=== PATIENT | male | born 1950 | race Caucasian/White ===

== ENCOUNTER 2016-11-22 08:51 | Observation (INO) | payer BC, OTHER ==
[~2016-11-22] VITALS: Ht 177.8 cm; Wt 93.9 kg
--- NOTE | ~2016-11-22 | P ---
[facility] [place] [address] PROCEDURE REPORT Name: NICOLLE BOUDREAUX Room #: 209-P [facility] M..#: [id number] Admission: 11/22/16 Attend Phys: Bobby Armenta MD Discharge: Date of : 54 Report #: [id number] THIS REPORT FOR: //name// CC: Jm Kelly PROCEDURE: ICD implant. PREOPERATIVE DIAGNOSIS: Ischemic cardiomyopathy. POSTOPERATIVE DIAGNOSIS: Ischemic cardiomyopathy. HISTORY: The patient is a 66-year-old male with a history of an ischemic cardiomyopathy, EF of 30% to 35%, who is here for ICD implantation for primary prevention of sudden cardiac . ANESTHESIA: The patient underwent MAC anesthesia, with no anesthesia-related complications. DESCRIPTION OF PROCEDURE: The patient underwent informed consent. We discussed the details of the procedure including the risks, which include but not limited to bleeding, infection, vascular damage, cardiac perforation and pneumothorax. He understood these risks and is willing to proceed. As such, he is brought to the EP laboratory in a fasting and sedated state and prepped and draped in a sterile fashion. He underwent a venogram showing patency of the left axillary vein and received IV antibiotics prior to initiation of the procedure. Next, I injected 20 mL of lidocaine below the level of the clavicle. Incision was made, pocket was created over the prepectoral fascia and access was obtained once to the left axillary vein using the extrathoracic approach, with a sheath positioned using the modified Seldinger technique. Next, the RV lead was placed into the right ventricular apex. At this site, there were low R waves. I decided to reposition the lead to more of a septal site with improvement in R waves. The lead was sutured to the prepectoral fascia. Access was obtained. The device was connected to leads and the lead was found to be functioning normally. The pocket was irrigated with vancomycin and then the pocket was closed in 3 layers using 2-0 for the deep layer, 3-0 for the mid layer and 4-0 for the subcuticular layer. Surgical glue was placed to the outer skin layer. The patient awoke neurologically and hemodynamically intact, with no complications and no significant bleeding. The implanted ICD was a [employer] model # [id number], serial #[id number]. RV lead was a [employer] model #7122Q, 58 cm, serial # [id number]. This lead demonstrated an R-wave of 9.7 millivolts, pacing impedance of 510 ohms and a pacing threshold of 0.25 volts at 0.5 milliseconds. The device was programmed to the VVI 40 mode with a VT zone set at 180-220 with 3 rounds of bursts, followed by 3 rounds of ramp, followed by max output shocks. The VF zone was [facility] [address] [place] [address] PROCEDURE REPORT Name: NICOLLE BOUDREAUX Room #: 209-P [facility] Maximino M.R.#: [id number] Admission: 11/22/16 Attend Phys: Bobby Armenta MD Discharge: Date of : 54 Report #: [id number] programmed at greater than 220 beats per minute with ATP, followed by max output shocks. CONCLUSIONS: 1. Successful ICD implantation. 2. Satisfactory right ventricular pacing and sensing thresholds. By: 1659 [id number] Bobby Armenta MD /nt
[~2016-11-22 08:51] MED LIST: ASPIRIN325 PO; CARDURA XL8 MG PO; CRESTOR20 MG PO; EFFIENT10 MG PO; FISH OIL 1,0001 EAC5 PO; LISINOPRIL-HCT1 EACH PO; MULTIVITAMINS PO; NORVASC 5 MG TAB5 MG PO; TOPROL XL100 MG PO; ZOCOR5 MG
[2016-11-22] MEDS ORDERED: METFORMIN HCL500 MG PO (09:08)
[2016-11-22] MEDS ORDERED: ALLER-EASE180 MG PO (09:08)
[2016-11-22 09:20] VITALS: BP 106/76
[2016-11-22 09:23] LABS: ABSOLUTE NEUTROPHILS 3.1 thou/uL (1.4-8.2); BASOPHILS 0.8 % (0.0-2.0); EOSINOPHILS 4.6 % (0.0-3.0); HEMATOCRIT 40.6 % (42.0-52.0); HEMOGLOBIN 13.1 gm/dL (14.0-18.0); LYMPHOCYTES 20.8 % (24.0-44.0); MANUAL DIFF NO; MCHC 32.3 g/dL (28.0-37.0); MCV 83.6 fL (80.0-100.0); MONOCYTES 9.8 % (1.0-8.0); PLATELET COUNT 126 thou/uL (150-400); RBC 4.85 mil/uL (4.50-6.00); RDW 16.7 % (10.5-14.5); WBC 4.9 thou/uL (4.0-11.0)
[2016-11-22 09:36] LABS: APTT 25.8 Seconds (24.5-32.8); INR 1.2
[2016-11-22 09:40] LABS: CALCIUM 9.6 mg/dL (8.5-10.1); CREATININE 1.4 mg/dL (0.7-1.3)
[2016-11-22 09:46] LABS: TOTAL BILIRUBIN 0.9 mg/dL (<0.1-1.0); TOTAL PROTEIN 7.7 g/dL (6.4-8.2)
[2016-11-22 18:00] VITALS: BP 108/77
[2016-11-22 20:00] VITALS: BP 104/74
[2016-11-22 23:39] VITALS: BP 116/62
[2016-11-23 04:28] VITALS: BP 106/78
[2016-11-23 06:55] VITALS: BP 112/72
[2016-11-23 10:47] VITALS: BP 112/72
[2016-11-23 10:53] VITALS: BP 112/72
== END 2016-11-23 12:42 | disposition home or self-care (01) ==
LOC: CATH 08:51 → 2N 17:51
PROVIDERS: Internal Medicine Cardiovascular Disease
DX: I25.5 Ischemic cardiomyopathy (principal); I10 Essential (primary) hypertension; E78.5 Hyperlipidemia, unspecified; I25.10 Atherosclerotic heart disease of native coronary artery without angina pectoris; Z72.89 Other problems related to lifestyle

== ENCOUNTER → 2017-01-12 | Outpatient (CLI) | payer BC, OTHER ==
[~2017-01-12] MED LIST changes: +ALLER-EASE180 MG PO; +METFORMIN HCL500 MG PO
--- NOTE | ~2017-01-12 | PFR/MVV ---
[facility] [place] [address] PULMONARY FUNCTION MVV/REPORT Name: NICOLLE BOUDREAUX Room #: REG [facility]#: [id number] Admission: 01/12/17 Attend Phys: Jm Abreu MD, [facility] Discharge: Date of : 54 Report #: [id number] THIS REPORT FOR: //name// >> SPIROMETRY: (BTPS) Height: in cm Weight: lbs kg Exam Date: PRE-RX POST-RX PRED BEST %PRED BEST %PRED %CHG FVC LITERS . . . . . . FEV1 LITERS . . . . . . FEV1/FVC % . . . . . . XTY12-59% L/Sec . . . . . . PEF L/SEC . . . . . . FEF50/FIF50 UNITLESS . . . . . . MVV L/Min . . . f 1/Min . . . >> LUNG VOLUMES: (BTPS) PRE-RX POST-RX PRED AVG %PRED AVG %PRED %CHG VC Liters . . . . . . TLC Liters . . . . . . RV Liters . . . . . . RV/TLC % . . . . . . FRC PL Liters . . . . . . FRC N2 Liters . . . . . . ERV Liters . . . . . . IC Liters . . . . . . >> DIFFUSION: DLCO ml/Min/mmHg . . . . . . DL Chris ml/Min/mmHg . . . . . . DLCO/VA ml/Min/mmHg . . . . . . VA Liters . . . . . . COMMENTS: COMMENTS: >> RESISTANCE: [facility] [address] [place] [address] PULMONARY FUNCTION MVV/REPORT Name: NICOLLE BOUDREAUX Room #: REG [facility]#: [id number] Admission: 01/12/17 Attend Phys: Jm Abreu MD, [facility] Discharge: Date of : 54 Report #: [id number] PRE-RX PRED AVG %PRED Raw Total cmH20/L/Sec . . . Raw Insp cmH20/L/Sec . . . Raw Exp cmH20/L/Sec . . . Raw cmH20/L/Sec . . . Gaw L/Sec/cmH20 . . . sRaw cmH20 Sec . . . sGaw l/cmH20 Sec . . . Vtq Liters . . . # = OUTSIDE 95% CONFIDENCE INTERVAL CALIBRATION: PRED: 3.00 ACTUAL: EXP 3.01 INSP 3.02 [facility]-OL03-25 [facility]- N-1804-4 >> INTERPRETATION/IMPRESSION: CC: Jm Kelly DATE OF SERVICE: 01/12/2017 NOTATION: Full pulmonary function studies are as follows: Spirometry revealed moderate airflow obstruction as evidenced by the reduced FEV1/FVC ratio. The FEV1 is 2.23 liters or 64% of predicted. There is no significant change with bronchodilators. Lack of improvement with bronchodilators does not preclude a therapeutic trial of bronchodilator medications. Lung volumes normal. DLCO normal. By: Mack Hart MD /nt
== END ==
LOC: PUL 10:50
DX: Z92.29 Personal history of other drug therapy (principal)

== ENCOUNTER → 2017-01-25 | Outpatient (CLI) | payer BC, OTHER ==
[~2017-01-25] MED LIST changes: +ALLERGY RELIEF180 MG PO; +AMIODARONE HCL100 MG PO; +BECONASE AQ25 GM NS; +COREG25 MG PO
== END ==
LOC: RAD 15:09
DX: J90 Pleural effusion, not elsewhere classified (principal)

== ENCOUNTER 2017-01-27 11:39 | Inpatient (IN) | payer BC, OTHER ==
[~2017-01-27] VITALS: Ht 177.8 cm; Wt 86.2 kg
--- NOTE | ~2017-01-27 | EKG ---
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
[~2017-01-27 11:39] MED LIST changes: -ALLERGY RELIEF180 MG PO; -AMIODARONE HCL100 MG PO; -BECONASE AQ25 GM NS; -COREG25 MG PO
[2017-01-27 12:07] VITALS: BP 104/74
[2017-01-27] MEDS ORDERED: COREG25 MG PO (12:20)
[2017-01-27] MEDS ORDERED: AMIODARONE HCL100 MG PO (12:21)
[2017-01-27] MEDS ORDERED: ALLERGY RELIEF180 MG PO (12:22)
[2017-01-27] MEDS ORDERED: BECONASE AQ25 GM NS (12:23)
[2017-01-27 12:31] LABS: ABSOLUTE NEUTROPHILS 4.9 thou/uL (1.4-8.2); BASOPHILS 0.6 % (0.0-2.0); EOSINOPHILS 2.7 % (0.0-3.0); HEMATOCRIT 37.2 % (42.0-52.0); HEMOGLOBIN 11.9 gm/dL (14.0-18.0); LYMPHOCYTES 11.4 % (24.0-44.0); MCH 27.8 pg (26.0-34.0); MONOCYTES 7.6 % (1.0-8.0); PLATELET COUNT 157 thou/uL (150-400); POLYS 77.7 % (36.0-66.0); RBC 4.28 mil/uL (4.50-6.00); RDW 16.9 % (10.5-14.5); WBC 6.4 thou/uL (4.0-11.0)
[2017-01-27 12:36] LABS: MANUAL DIFF NO
[2017-01-27 12:41] LABS: CALCIUM 9.7 mg/dL (8.5-10.1); CREATININE 1.4 mg/dL (0.7-1.3); POTASSIUM 4.1 mmol/L (3.5-5.1)
[2017-01-27 12:53] LABS: ALBUMIN 3.7 g/dL (3.4-5.0); TOTAL BILIRUBIN 1.5 mg/dL (<0.1-1.0); TOTAL PROTEIN 7.5 g/dL (6.4-8.2); TROPONIN-I 0.05 ng/mL (<0.04-0.07)
[2017-01-27 14:39] VITALS: BP 104/74
[2017-01-27 15:20] VITALS: BP 112/77
[2017-01-27 15:40] VITALS: BP 102/79
[2017-01-27 20:00] VITALS: BP 109/69
[2017-01-28 04:00] VITALS: BP 100/65
[2017-01-28 05:39] LABS: ABSOLUTE NEUTROPHILS 4.6 thou/uL (1.4-8.2); BASOPHILS 0.6 % (0.0-2.0); EOSINOPHILS 4.2 % (0.0-3.0); HEMATOCRIT 34.4 % (42.0-52.0); HEMOGLOBIN 11.3 gm/dL (14.0-18.0); LYMPHOCYTES 11.3 % (24.0-44.0); MCH 28.3 pg (26.0-34.0); MCHC 32.9 g/dL (28.0-37.0); MCV 86.1 fL (80.0-100.0); MONOCYTES 9.8 % (1.0-8.0); PLATELET COUNT 153 thou/uL (150-400); POLYS 74.1 % (36.0-66.0); RBC 3.99 mil/uL (4.50-6.00); RDW 16.9 % (10.5-14.5); WBC 6.3 thou/uL (4.0-11.0)
[2017-01-28 05:42] LABS: MANUAL DIFF NO
[2017-01-28 06:19] LABS: CALCIUM 9.5 mg/dL (8.5-10.1); CREATININE 1.4 mg/dL (0.7-1.3); POTASSIUM 3.7 mmol/L (3.5-5.1)
[2017-01-28 07:58] VITALS: BP 105/64
[2017-01-28 15:43] VITALS: BP 97/48
[2017-01-28 20:20] VITALS: BP 118/60
[2017-01-29 03:55] VITALS: BP 90/53
[2017-01-29 03:59] LABS: CALCIUM 9.8 mg/dL (8.5-10.1); CREATININE 1.6 mg/dL (0.7-1.3); POTASSIUM 3.6 mmol/L (3.5-5.1)
[2017-01-29 04:08] LABS: BASOPHILS 0.8 % (0.0-2.0); EOSINOPHILS 5.4 % (0.0-3.0); HEMATOCRIT 35.6 % (42.0-52.0); HEMOGLOBIN 11.6 gm/dL (14.0-18.0); LYMPHOCYTES 14.6 % (24.0-44.0); MCHC 32.5 g/dL (28.0-37.0); MCV 86.2 fL (80.0-100.0); MONOCYTES 10.4 % (1.0-8.0); PLATELET COUNT 162 thou/uL (150-400); POLYS 68.8 % (36.0-66.0); RBC 4.13 mil/uL (4.50-6.00); RDW 16.6 % (10.5-14.5); WBC 5.9 thou/uL (4.0-11.0)
[2017-01-29 04:10] LABS: MANUAL DIFF NO
[2017-01-29 08:10] VITALS: BP 95/60
[2017-01-29 13:10] VITALS: BP 100/63
[2017-01-29 15:39] VITALS: BP 93/58
[2017-01-30 03:56] VITALS: BP 105/59
[2017-01-30 07:31] VITALS: BP 106/63
[2017-01-30 14:48] VITALS: BP 106/63
== END 2017-01-30 15:15 | disposition home or self-care (01) | DRG 292 ==
LOC: ER 11:39 → 4E 13:00 → EROBS 14:10 → 4E 15:33
PROVIDERS: Family Medicine; Physician Assistant
DX: I11.0 Hypertensive heart disease with heart failure (principal); G45.1 Carotid artery syndrome (hemispheric); I50.23 Acute on chronic systolic (congestive) heart failure; I25.5 Ischemic cardiomyopathy; I25.10 Atherosclerotic heart disease of native coronary artery without angina pectoris; E78.00 Pure hypercholesterolemia, unspecified; Z90.49 Acquired absence of other specified parts of digestive tract; Z95.1 Presence of aortocoronary bypass graft; Z95.810 Presence of automatic (implantable) cardiac defibrillator
CPT/HCPCS: 10183

== ENCOUNTER → 2017-07-28 | Outpatient (CLI) | payer OTHER, BC ==
[~2017-07-28] MED LIST changes: +ALLERGY RELIEF180 MG PO; +ALLOPURINOL 10100 M1 PO; +BECONASE AQ25 GM NS; +BREO ELLIPTA 11 EACH INH; +COREG25 MG PO; +CORLANOR5 MG PO; +COUMADIN 2.5MG2.5 M1 PO; +DEMADEX20 MG PO; +DIGOXIN125 MCG PO; +GAS-X125 M1 PO; +LISINOPRIL20 MG PO; +MILRINONE-20 MG/100 IV; +MULTIPLE VITAM1 EAC2 PO; +PACERONE 200 M200 M1 PO; +POTASSIUM20 PO; +PRADAXA150 MG PO; +PROAIR RESPICL90 MCG INH; +ROLAIDS CHEWAB1 EAC1 PO; +SYNTHROID50 MCG PO; +TOPROL XL25 MG PO
--- NOTE | ~2017-07-28 | 2DMMODE ---
[facility] [address] [place] [address] 2 D/M-MODE ECHOCARDIOGRAM Name: NICOLLE BOUDREAUX Room #: REG [facility]#: [id number] Admission: 07/28/17 Attend Phys: Bobby Armenta Discharge: Date of : 54 Date of Service: 07/28/17 1638 Report #: [id number] THIS REPORT FOR: //name// APPROVED REPORT Study performed: 07/28/2017 15:47:11 EXAM: Comprehensive 2D, Doppler, and color-flow Echocardiogram Patient Location: Out-Patient Status: routine BSA: 2.09 HR: 41 bpm BP: 116/78 mmHg Other Information Study Quality: Good Indications Cardiomyopathy. Hx: CABG, AICD, CHF 2D Dimensions RVDd: 49.10 mm LVEF(%): 22.02 (>50%) IVSd: 10.91 (7-11mm) LVOT Diam: 25.95 (18-24mm) LVDd: 71.60 mm PWd: 11.04 (7-11mm) Ascending Ao: 37.04 (22-36mm) LVDs: 64.14 (25-40mm) Aortic Root: 39.91 mm Juarez's LVEF: 22.02 % Volumes Left Atrial Volume (Systole) Single Plane 4CH: 135.01 mL Single Plane 2CH: 181.66 mL LA ESV Index: 80.00 mL/m2 Aortic Valve AoV Peak Robbie.: 0.96 m/s AO Peak Gr.: 3.67 mmHg LVOT Max P.17 mmHg LVOT Max V: 0.89 m/s DULCE MARIA Vmax: 4.91 cm2 Mitral Valve E/A Ratio: 2.3 MV Decel. Time: 106.22 ms MV E Max Robbie.: 0.99 m/s [facility] [place] [address] 2 D/M-MODE ECHOCARDIOGRAM Name: NICOLLE BOUDREAUX [facility] [id number] Admission: 07/28/17 Attend Phys: [facility] Discharge: Date of : 54 Date of Service: 07/28/17 1638 Report #: [id number] MV A Orbbie.: 0.44 m/s MV PHT: 30.80 ms IVRT: 73.82 ms Pulmonary Valve PV Peak Robbie.: 0.83 m/s PV Peak Gr.: 2.77 mmHg Tricuspid Valve TR Peak Robbie.: 3.70 m/s RAP Estimate: 10.00 mmHg TR Peak Gr.: 54.73 mmHg PA Pressure: 65.00 mmHg Left Ventricle Left ventricle is moderate to severely dilated. There is normal left ventricular wall thickness. Left ventricular systolic function is severely decreased. LVEF is 30%. This study is not technically sufficient to allow evaluation of the LV diastolic function. Right Ventricle Right ventricle is moderately dilated. The right ventricular systolic function is normal. Device lead is present in the right ventricle. Atria Left atrium is severely dilated. Right atrium is moderately dilated. Aortic Valve The aortic valve is mildly sclerotic, trileaflet. Mild aortic regurgitation. There is no aortic valvular stenosis. Mitral Valve The mitral valve is normal in structure. Moderately severe to severe mitral regurgitation. Tricuspid Valve The tricuspid valve is normal in structure. Moderate tricuspid regurgitation. Estimated PAP is 65mmHg. Pulmonic Valve The pulmonary valve is normal in structure. Mild to moderate pulmonic regurgitation. Great Vessels Aortic root is mildly dilated. Ascending aorta measures at the upper limits of normal. IVC is dilated and collapses <50% with inspiration. [address] [address] 2 D/M-MODE ECHOCARDIOGRAM Name: NICOLLE BOUDREAUX Room #: REG [facility]#: [id number] Admission: 07/28/17 Attend Phys: [facility] Discharge: Date of : 54 Date of Service: 07/28/17 1638 Report #: [id number] Pericardium There is no pericardial effusion. <Conclusion> Left ventricular systolic function is severely decreased. LVEF is 30%. Basal inferoseptal and inferolateral akinesis Both atria are dilated. The aortic valve is mildly sclerotic, trileaflet. Mild aortic regurgitation, no stenosis. The mitral valve is normal in structure. Moderately severe to severe mitral regurgitation. Moderate tricuspid regurgitation. Estimated PAP is 65mmHg. There is no pericardial effusion. <ELECTRONICALLY SIGNED> By: Jm Abreu MD, [facility] 07/28/17 1638 1638 1638 Jm Abreu MD, FACC /INF
== END ==
LOC: CV 15:17
DX: I42.9 Cardiomyopathy, unspecified (principal); I50.9 Heart failure, unspecified; Z95.5 Presence of coronary angioplasty implant and graft; Z95.810 Presence of automatic (implantable) cardiac defibrillator

== ENCOUNTER 2017-08-04 06:49 | Observation (INO) | payer OTHER ==
[~2017-08-04] VITALS: Ht 177.8 cm; Wt 85.7 kg
--- NOTE | ~2017-08-04 | P ---
[place] [address] PROCEDURE REPORT Name: NICOLLE BOUDREAUX Room #: 207-P [facility] M.R.#: [id number] Admission: 08/04/17 Attend Phys: Bobby Armenta MD Discharge: 08/05/17 Date of : 54 Report #: [id number] THIS REPORT FOR: //name// CC: Jm Kelly PROCEDURE PERFORMED: Bi-V ICD upgrade. PREOPERATIVE DIAGNOSES: 1. Ischemic cardiomyopathy. 2. Symptomatic bradycardia. 3. Complete heart block. 4. Ventricular tachycardia. HISTORY OF PRESENT ILLNESS: The patient is a 67-year-old with history of coronary artery disease, status post [place] as well as an ischemic cardiomyopathy, status post single chamber ICD implantation back in November 2016. A few months after implant, the patient had an episode of cardiac arrest and was successfully resuscitated by his defibrillator. He was placed on amiodarone. He then has been developing worsening bradycardia. He had significant sinus bradycardia, therefore his amiodarone dose was decreased to 300 mg a day. However, recently, he was noted to be in atrial flutter with a ventricular rate in the 40s. As such, the patient will need an upgrade to a Bi-V ICD as I anticipate 100% right ventricular pacing and he has an EF of less than 35% and class 3 heart failure symptoms. ANESTHESIA: The patient underwent MAC anesthesia with no anesthesia related complications. PROCEDURE: The patient underwent informed consent where we discussed the details of the procedure including the risks, which include, but are not limited to bleeding, infection, vascular damage, cardiac perforation, and pneumothorax. He understood these risks and was willing to proceed. As such, he was brought to the EP laboratory in a fasting and sedated state and prepped and draped in a sterile fashion. He underwent a venogram showing patency of the left axillary vein. Next, I injected lidocaine at the prior incision site. The incision was opened and the old device was taken out of the pocket. I then obtained access to the left axillary vein times 2 using the extrathoracic approach with sheaths positioned using the modified Seldinger technique. Next, a lead was placed in the right atrial appendage. The patient was in a slow flutter with a cycle length of around 400 milliseconds. Threshold was able to be obtained and was within normal limits. The lead was sutured to the prepectoral fascia. Next, I placed my coronary sinus guide sheath into the right atrium and obtained access to the coronary sinus. He had a very large coronary sinus. I initially performed a hand injection via the sheath, but due to the very large coronary sinus, I could not really see any target vessels. Therefore, I placed a balloon [address] [address] PROCEDURE REPORT Name: NICOLLE BOUDREAUX Room #: 207-P [facility] Maximino M.RCrystal#: [id number] Admission: 08/04/17 Attend Phys: Bobby Armenta MD Discharge: 08/05/17 Date of : 54 Report #: [id number] into the coronary sinus and this caused a slight dissection along the mid aspect of the coronary sinus, but I was able to maintain sheath position and I was able to notice that there was a small posterior lateral branch at the very distal aspect of the coronary sinus. I was able to position a quadripolar lead into this vessel. This had good pacing thresholds. There was no phrenic nerve capture. As such, the sheath was split and the lead remained in position. This lead was sutured to the prepectoral fascia. I did expand the pocket to make room for the larger generator. The pocket was then irrigated with vancomycin solution. The new leads were connected to the new device and the device was tested and found to be functioning normally. The pocket was then closed in 3 layers using 2-0 for the deep layer, 3-0 for the mid layer and 4-0 for the subcuticular layer. Surgical glue was placed to the outer skin layer. The patient awoke neurologically and hemodynamically intact with no complications and no significant bleeding. We used 43 mL of contrast. The explanted defibrillator was a [employer] model #055764K, serial #[id number], implanted on 11/22/2016. The RV lead was a [employer] model #7122Q, 58 cm, serial #[id number]. This lead was implanted on 11/22/2016. The newly implanted generator was a [employer] model #[id number], serial #[id number]. The new atrial lead was a [employer] model #2088TC, 52 cm, serial #[id number]. The LV lead was a [employer] model #1458Q, 86 cm, serial #[id number]. The atrial lead demonstrated a P-wave of 2.2 millivolts, a pacing impedance of 403 ohms and a pacing threshold of 0.8 volts at 0.5 milliseconds. The RV lead demonstrated R-wave was greater than 12 millivolts, pacing impedance of 360 ohms and the pacing threshold of 0.75 volts at 0.5 milliseconds and the LV lead demonstrated a pacing threshold of 1.5 volts at 0.5 milliseconds at the M3-M2 pacing vector with a pacing impedance of 680 ohms. There was no phrenic nerve stimulation noted at this site. The device was programmed to the DDDR 70-120 mode. The VT 1 zone was set from 180-220 beats per minute with 3 rounds of burst followed by 3 rounds of ramp followed by max output shocks. The VF zone was set at greater than 222 beats per minute with ATP while charging followed by max output shocks. CONCLUSIONS: 1. Successful upgrade to a biventricular ICD. 2. Satisfactory atrial, right ventricular and left ventricular pacing and sensing thresholds. <ELECTRONICALLY SIGNED> By: Bobby Armenta MD 09/02/17 1753 1104 1700 Bobby Armenta MD /nt
--- NOTE | ~2017-08-04 | EKG ---
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 <ELECTRONICALLY SIGNED> By: Jm Abreu MD, FAC 08/05/17 0751 0615 0615 Jm Abreu MD, FAC /EPI
[~2017-08-04 06:49] MED LIST changes: -ALLOPURINOL 10100 M1 PO; -BREO ELLIPTA 11 EACH INH; -CORLANOR5 MG PO; -COUMADIN 2.5MG2.5 M1 PO; -DEMADEX20 MG PO; -DIGOXIN125 MCG PO; -GAS-X125 M1 PO; -LISINOPRIL20 MG PO; -MILRINONE-20 MG/100 IV; -MULTIPLE VITAM1 EAC2 PO; -POTASSIUM20 PO; -PRADAXA150 MG PO; -PROAIR RESPICL90 MCG INH; -ROLAIDS CHEWAB1 EAC1 PO; -SYNTHROID50 MCG PO; -TOPROL XL25 MG PO
[2017-08-04 07:32] LABS: ABSOLUTE NEUTROPHILS 3.6 thou/uL (1.4-8.2); BASOPHILS 2.8 % (0.0-2.0); EOSINOPHILS 5.3 % (0.0-3.0); HEMOGLOBIN 11.6 gm/dL (14.0-18.0); LYMPHOCYTES 17.1 % (24.0-44.0); MCH 29.4 pg (26.0-34.0); MCHC 32.2 g/dL (28.0-37.0); MCV 91.2 fL (80.0-100.0); MONOCYTES 10.5 % (1.0-8.0); PLATELET COUNT 233 thou/uL (150-400); POLYS 64.3 % (36.0-66.0); RBC 3.95 mil/uL (4.50-6.00); RDW 15.8 % (10.5-14.5); WBC 5.7 thou/uL (4.0-11.0)
[2017-08-04] MEDS ORDERED: DEMADEX20 MG PO (07:40)
[2017-08-04] MEDS ORDERED: LISINOPRIL20 MG PO (07:44)
[2017-08-04 07:45] LABS: CALCIUM 9.3 mg/dL (8.5-10.1); CREATININE 2.4 mg/dL (0.7-1.3); POTASSIUM 3.6 mmol/L (3.5-5.1)
[2017-08-04 07:46] LABS: APTT 27.2 Seconds (24.5-32.8); INR 1.2; PROTIME 12.7 Seconds (9.3-11.4)
[2017-08-04 07:49] VITALS: BP 109/65
[2017-08-04 07:53] LABS: ALBUMIN 3.2 g/dL (3.4-5.0); TOTAL BILIRUBIN 0.8 mg/dL (<0.1-1.0); TOTAL PROTEIN 6.9 g/dL (6.4-8.2)
[2017-08-04 14:20] VITALS: BP 126/90
[2017-08-04 16:23] VITALS: BP 127/79
[2017-08-04 20:24] VITALS: BP 124/86
[2017-08-05 00:05] VITALS: BP 105/64
[2017-08-05 04:34] VITALS: BP 118/75
[2017-08-05 04:47] LABS: ABSOLUTE NEUTROPHILS 4.9 thou/uL (1.4-8.2); BASOPHILS 1.3 % (0.0-2.0); EOSINOPHILS 3.9 % (0.0-3.0); HEMATOCRIT 35.8 % (42.0-52.0); HEMOGLOBIN 11.3 gm/dL (14.0-18.0); LYMPHOCYTES 13.9 % (24.0-44.0); MCH 28.9 pg (26.0-34.0); MCHC 31.6 g/dL (28.0-37.0); MCV 91.5 fL (80.0-100.0); MONOCYTES 8.4 % (1.0-8.0); PLATELET COUNT 200 thou/uL (150-400); POLYS 72.5 % (36.0-66.0); RBC 3.91 mil/uL (4.50-6.00); RDW 15.5 % (10.5-14.5); WBC 6.8 thou/uL (4.0-11.0)
[2017-08-05 05:11] LABS: CALCIUM 9.4 mg/dL (8.5-10.1); CREATININE 1.9 mg/dL (0.7-1.3); POTASSIUM 3.9 mmol/L (3.5-5.1)
[2017-08-05 07:32] VITALS: BP 117/65
[2017-08-05 09:30] VITALS: BP 117/65
[2018-04-26] MEDS ORDERED: PROAIR RESPICL90 MCG INH (15:47)
[2018-04-26] MEDS ORDERED: ALLOPURINOL 10100 M1 PO (15:48)
[2018-04-26] MEDS ORDERED: CORLANOR5 MG PO (15:51)
[2018-04-26] MEDS ORDERED: DIGOXIN125 MCG PO (15:55)
[2018-04-26] MEDS ORDERED: BREO ELLIPTA 11 EACH INH (15:56)
[2018-04-26] MEDS ORDERED: SYNTHROID50 MCG PO (15:57)
[2018-04-26] MEDS ORDERED: TOPROL XL25 MG PO (15:58)
[2018-04-26] MEDS ORDERED: MULTIPLE VITAM1 EAC2 PO (16:01)
[2018-04-26] MEDS ORDERED: MILRINONE-20 MG/100 IV (16:01)
[2018-04-26] MEDS ORDERED: POTASSIUM20 PO (16:02)
[2018-04-26] MEDS ORDERED: ROLAIDS CHEWAB1 EAC1 PO (16:03)
[2018-04-26] MEDS ORDERED: GAS-X125 M1 PO (16:04)
[2018-04-26] MEDS ORDERED: COUMADIN 2.5MG2.5 M1 PO (16:05)
== END 2017-08-05 09:45 | disposition home or self-care (01) ==
LOC: CATH 06:49 → 2N 06:55 → CATH 10:49 → 2N 08-05 09:45
PROVIDERS: Internal Medicine Cardiovascular Disease
DX: I25.10 Atherosclerotic heart disease of native coronary artery without angina pectoris (principal); R00.1 Bradycardia, unspecified; I42.9 Cardiomyopathy, unspecified; I25.5 Ischemic cardiomyopathy; I50.22 Chronic systolic (congestive) heart failure; I48.1 Persistent atrial fibrillation; I11.0 Hypertensive heart disease with heart failure; E78.00 Pure hypercholesterolemia, unspecified

== ENCOUNTER 2017-09-23 06:53 | Outpatient (CLI) | payer OTHER, BC ==
[~2017-09-23] VITALS: Ht 177.8 cm; Wt 90.3 kg
--- NOTE | ~2017-09-23 | P ---
[facility] [place] [address] PROCEDURE REPORT Name: NICOLLE BOUDREAUX JR [id number] Admission: 09/23/17 Attend Phys: Bobby Armenta MD Discharge: 09/24/17 Date of : 54 Report #: [id number] THIS REPORT FOR: //name// CC: Jm Kelly PREOPERATIVE DIAGNOSIS: Atrial flutter. POSTOPERATIVE DIAGNOSIS: Atypical left-sided atrial flutter. PROCEDURES PERFORMED: 1. SVT ablation, CPT code 46931. 2. EP with left atrial pacing and recording, CPT code 30453. 3. Intracardiac echo, CPT code 35524. 4. 3D mapping EP, CPT code 97684. 5. Mapping of tachycardia, CPT code 66452. 6. Transseptal puncture, CPT code 51478. 7. Arterial line placement for hemodynamic monitoring, CPT code 22618. 8. ICD reprogramming, CPT code 96980. HISTORY OF PRESENT ILLNESS: The patient is a 67-year-old with history of ischemic cardiomyopathy who underwent ICD implantation for primary prevention of sudden cardiac , a few months later had ICD shock for VF and was placed on amiodarone, subsequently developed bradycardia and was upgraded to a Bi-V ICD and then was found to have a new onset atrial flutter. He is here for aflutter ablation. ANESTHESIA: The patient underwent MAC anesthesia, but when I decided to perform transseptal, we converted to general anesthesia as he does have restless leg syndrome and was moving his legs throughout the procedure. PROCEDURE: The patient underwent informed consent where we discussed the details of the procedure including the risks, which include, but not limited to bleeding, vascular damage, cardiac perforation as well as stroke or AL. He understood these risks and is willing to proceed. The patient was brought to the EP laboratory in fasting and sedated state and the patient was prepped and draped in a sterile fashion. I interrogated his ICD at the beginning of the case and I turned his pacing to VVI 70 and I turned off his ICD therapies. Next, I obtained access to the right femoral vein times 3, placing an 8-[place]ese and two 7-[place] short sheaths. Then, under fluoroscopy, I placed a decapolar catheter into the coronary sinus. I was careful not to disturb the LV lead. Immediately, this demonstrated that there was a distal to proximal activation on the CS. At baseline, the patient was in atrial flutter with atrial flutter cycle length of 440 milliseconds, biventricular paced rhythm at 850 milliseconds, the QRS duration of 150 milliseconds, and QT interval of [facility] [address] [place] [address] PROCEDURE REPORT Name: NICOLLE BOUDREAUX Room #: DEP [facility]#: [id number] Admission: 09/23/17 Attend Phys: Bobby Armenta MD Discharge: 09/24/17 Date of : 54 Report #: [id number] 550 millisecond. I performed entrainment from CS9-10 and CS1-2 and both of these were very long. TRANSSEPTAL PROCEDURE: Next, as it was clear that this was a left-sided flutter, I decided to proceed with transseptal procedure. We converted the patient to general anesthesia. I then placed a 9-[place] short sheath in the left femoral vein and placed an ice catheter into the right atrium. The patient had a large left atrium with a nice thin septum. There was evidence of a large left inferior pulmonary vein and the other three pulmonary veins were within normal limits. I placed a 4-[place] arterial sheath for blood pressure monitoring in the left femoral artery as well. Next, the patient was systemically heparinized and a transseptal was performed using an SL1 sheath and a [place] needle, transseptal was straightforward. I then placed a Lasso catheter into the left atrium and performed activation map, voltage map, and 3D anatomy. I performed atrial entrainment from different locations in the atria. Everything was very long except for the mitral isthmus where the PPI minus tachycardia cycle length with my ablation catheter sitting over CS1-2 was approximately 15 milliseconds. As such, I started performing ablation along the mitral isthmus. Of note, he had a very large left atrium and with my SL1 sheath, I had difficulties really reaching this area and getting good stability and force. I performed ablation along this region as well as below the area of the left atrial appendage. The atrial flutter did not terminate. Again, I think my major issue was reached. I therefore went back to the right side and attempted to place my ablation catheter into the coronary sinus. Again, this was quite difficult and I was trying to be careful not to dislodge the coronary sinus lead. I ended up going back in with the decapolar catheter and performed entrainment from multiple locations in the CS and everything was long. Therefore, I thought that attempts at ablating in the coronary sinus were not going to help things out. I did try to pace terminate the atrial flutter and this resulted in another atrial flutter with a tachycardia cycle length of 340 milliseconds. I tried entrainment from the cavotricuspid isthmus on the right side and this was not consistent with a CTI dependent flutter. As such, the patient was cardioverted with 200 joules with holiness of sinus rhythm. I used intracardiac ultrasound and there was no evidence of a pericardial effusion. His ICD was reinterrogated and was programmed back to its original settings. I used intracardiac ultrasound to verify that there was absence of a pericardial effusion. All catheters and sheaths were pulled. Protamine was administered and the patient awoke neurologically and hemodynamically intact with no complications and no significant bleeding. CONCLUSIONS: Unsuccessful ablation of a left-sided atrial flutter, likely mitral annular in nature. [facility] [address] [place] [address] PROCEDURE REPORT Name: JANUSZNICOLLE [facility] [id number] Admission: 09/23/17 Attend Phys: Bobby Armenta MD Discharge: 09/24/17 Date of : 54 Report #: [id number] RECOMMENDATIONS: The patient will continue with antiarrhythmic drug therapy. We will continue with amiodarone therapy. We will follow him clinically. <ELECTRONICALLY SIGNED> By: Bobby Armenta MD 09/30/17 1407 1220 1325 Bobby Armenta MD /nt
[~2017-09-23 06:53] MED LIST changes: +AMIODARONE HCL100 MG PO; +DEMADEX20 MG PO; +LISINOPRIL20 MG PO; -PACERONE 200 M200 M1 PO
[2017-09-23 07:19] VITALS: BP 111/71
[2017-09-23 07:41] LABS: ABSOLUTE NEUTROPHILS 4.1 thou/uL (1.4-8.2); BASOPHILS 1.2 % (0.0-2.0); EOSINOPHILS 3.3 % (0.0-3.0); HEMATOCRIT 35.4 % (42.0-52.0); HEMOGLOBIN 11.1 gm/dL (14.0-18.0); LYMPHOCYTES 13.1 % (24.0-44.0); MCH 26.7 pg (26.0-34.0); MCHC 31.5 g/dL (28.0-37.0); MCV 84.6 fL (80.0-100.0); MONOCYTES 9.4 % (1.0-8.0); PLATELET COUNT 186 thou/uL (150-400); RBC 4.18 mil/uL (4.50-6.00); WBC 5.6 thou/uL (4.0-11.0)
[2017-09-23 08:00] LABS: APTT 48.1 Seconds (24.5-32.8); INR 1.8; PROTIME 17.8 Seconds (9.3-11.4)
[2017-09-23 08:01] LABS: CALCIUM 8.9 mg/dL (8.5-10.1); CREATININE 2.1 mg/dL (0.7-1.3); POTASSIUM 3.1 mmol/L (3.5-5.1)
[2017-09-23 08:07] LABS: ALBUMIN 2.9 g/dL (3.4-5.0); TOTAL BILIRUBIN 1.5 mg/dL (<0.1-1.0); TOTAL PROTEIN 6.2 g/dL (6.4-8.2)
[2017-09-23 16:00] VITALS: BP 121/86
[2017-09-23 17:00] VITALS: BP 113/84
[2017-09-23 18:00] VITALS: BP 119/87
[2017-09-23 21:06] VITALS: BP 109/76
[2017-09-24 04:32] LABS: CALCIUM 9.1 mg/dL (8.5-10.1); CREATININE 2.2 mg/dL (0.7-1.3); POTASSIUM 3.5 mmol/L (3.5-5.1)
[2017-09-24 04:34] LABS: BASOPHILS 0.1 % (0.0-2.0); HEMATOCRIT 33.6 % (42.0-52.0); HEMOGLOBIN 10.6 gm/dL (14.0-18.0); LYMPHOCYTES 8.3 % (24.0-44.0); MCH 26.6 pg (26.0-34.0); MCHC 31.7 g/dL (28.0-37.0); MCV 84.2 fL (80.0-100.0); MONOCYTES 6.7 % (1.0-8.0); PLATELET COUNT 191 thou/uL (150-400); POLYS 84.9 % (36.0-66.0); RBC 3.99 mil/uL (4.50-6.00); RDW 16.8 % (10.5-14.5); WBC 7.1 thou/uL (4.0-11.0)
[2017-09-24 04:58] VITALS: BP 111/75
[2017-09-24] MEDS ORDERED: PRADAXA150 MG PO (07:58)
[2017-09-24 08:00] VITALS: BP 104/78
[2017-09-24 10:00] VITALS: BP 104/78
== END 2017-09-24 10:49 | disposition home or self-care (01) ==
LOC: CATH 06:53 → 2N 16:14 → CATH 09-24 10:49
PROVIDERS: Internal Medicine Cardiovascular Disease
DX: I48.4 Atypical atrial flutter (principal); I25.5 Ischemic cardiomyopathy; I50.9 Heart failure, unspecified; G25.81 Restless legs syndrome; Z79.01 Long term (current) use of anticoagulants; Z79.899 Other long term (current) drug therapy; Z98.890 Other specified postprocedural states; Z95.1 Presence of aortocoronary bypass graft
CPT/HCPCS: 10081; 62110; 62900; 70005

== ENCOUNTER → 2018-04-26 | Outpatient (CLI) | payer OTHER, BC ==
[~2018-04-26] MED LIST changes: +ALLOPURINOL 10100 M1 PO; -AMIODARONE HCL100 MG PO; +BREO ELLIPTA 11 EACH INH; +CORLANOR5 MG PO; +COUMADIN 2.5MG2.5 M1 PO; +DIGOXIN125 MCG PO; +GAS-X125 M1 PO; +MILRINONE-20 MG/100 IV; +MULTIPLE VITAM1 EAC2 PO; +PACERONE 200 M200 M1 PO; +POTASSIUM20 PO; +PRADAXA150 MG PO; +PROAIR RESPICL90 MCG INH; +ROLAIDS CHEWAB1 EAC1 PO; +SYNTHROID50 MCG PO; +TOPROL XL25 MG PO
[2018-04-26 12:00] VITALS: BP 104/70
[2018-04-26 12:13] LABS: CALCIUM 9.7 mg/dL (8.5-10.1); CREATININE 1.7 mg/dL (0.7-1.3)
[2018-04-26 16:33] LABS: INR 1.3; PROTIME 13.8 Seconds (9.3-11.4)
== END ==
LOC: OPONC 02:44
PROVIDERS: Internal Medicine Cardiovascular Disease
DX: I25.5 Ischemic cardiomyopathy (principal); I48.0 Paroxysmal atrial fibrillation; Z79.01 Long term (current) use of anticoagulants

== ENCOUNTER → 2018-05-09 | Outpatient (CLI) | payer OTHER, BC ==
[2018-05-09 11:35] LABS: INR 3.4; PROTIME 34.8 Seconds (9.3-11.4)
== END ==
LOC: OPONC 05-08 00:39
PROVIDERS: Internal Medicine Cardiovascular Disease
DX: I48.0 Paroxysmal atrial fibrillation (principal)

== ENCOUNTER → 2018-05-15 | Outpatient (CLI) | payer OTHER, BC ==
[2018-05-15 12:45] VITALS: BP 101/69
[2018-05-15 13:06] LABS: CALCIUM 9.7 mg/dL (8.5-10.1); CREATININE 1.7 mg/dL (0.7-1.3); POTASSIUM 4.2 mmol/L (3.5-5.1)
[2018-05-15 13:15] LABS: INR 2.1
== END ==
LOC: OPONC 08:21
PROVIDERS: Internal Medicine Cardiovascular Disease
DX: I48.0 Paroxysmal atrial fibrillation (principal); I25.5 Ischemic cardiomyopathy

== ENCOUNTER → 2018-05-23 | Outpatient (CLI) | payer OTHER, BC ==
[2018-05-23 14:17] LABS: CALCIUM 9.4 mg/dL (8.5-10.1); POTASSIUM 4.7 mmol/L (3.5-5.1)
== END ==
LOC: OPONC 10:42
PROVIDERS: Internal Medicine Cardiovascular Disease
DX: I25.5 Ischemic cardiomyopathy (principal)

== ENCOUNTER → 2018-05-26 | Outpatient (CLI) | payer OTHER, BC ==
[2018-05-26 11:30] VITALS: BP 103/71
[2018-05-26 11:57] LABS: CALCIUM 9.6 mg/dL (8.5-10.1); CREATININE 1.9 mg/dL (0.7-1.3); POTASSIUM 4.6 mmol/L (3.5-5.1)
[2018-05-26 12:04] LABS: INR 3.4; PROTIME 35.5 Seconds (9.3-11.4)
== END ==
LOC: OPONC 00:24
PROVIDERS: Internal Medicine Cardiovascular Disease
DX: I48.0 Paroxysmal atrial fibrillation (principal); I42.9 Cardiomyopathy, unspecified

== ENCOUNTER → 2018-05-29 | Outpatient (CLI) | payer OTHER, BC ==
[2018-05-29 12:31] LABS: CALCIUM 9.5 mg/dL (8.5-10.1); CREATININE 1.9 mg/dL (0.7-1.3); POTASSIUM 4.4 mmol/L (3.5-5.1)
[2018-05-29 12:35] LABS: INR 2.8; PROTIME 28.6 Seconds (9.3-11.4)
== END ==
LOC: OPONC 08:02
PROVIDERS: Internal Medicine Cardiovascular Disease
DX: I48.0 Paroxysmal atrial fibrillation (principal); I42.9 Cardiomyopathy, unspecified

== ENCOUNTER → 2020-07-14 | Outpatient (CLI) | payer OTHER, BC ==
[~2020-07-14] MED LIST changes: +ACID-PEP20 MG PO; +ADULT ASPIRIN R81 MG PO; +CALCIUM CARBON500 MG PO; +DOXAZOSIN MESYLA4 MG PO; +HYDRALAZINE HC100 MG PO; +LIPITOR80 MG PO; +LOSARTAN POTASS50 MG PO; +MELATONIN10 M3 PO; +MIRAPEX1 MG PO; +NORVASC5 M1 PO; +PREDNISONE 2.52.5 M1 PO; +SENNA-DOCUSATE1 EAC1 PO; +TACROLIMUS1 MG PO; +TRULICITY0.75 MG/0. SUBQ; +TYLENOL PM EX-1 EACH PO; +VITAMIN C500 M1 PO; +VITAMIN D350 MCG PO
== END ==
LOC: LAB 11:41
PROVIDERS: ATTEND Ophthalmology
DX: Z01.812 Encounter for preprocedural laboratory examination (principal); Z20.822 Contact with and (suspected) exposure to COVID-19

== ENCOUNTER 2020-07-17 07:16 | Day surgery (SDC) | payer OTHER, BC ==
[~2020-07-17] VITALS: Ht 177.8 cm; Wt 90.7 kg
[2020-07-17 08:00] VITALS: BP 112/79
--- NOTE | 2020-07-21 06:19 | O ---
[facility] [place] [address] OPERATIVE REPORT Name: LOUIE BOUDREAUX JR Room #: [facility]P [facility].#: [id number] Admission: 07/17/20 Attend Phys: Louie Villaseñor MD Discharge: 07/17/20 Date of : 54 Report #: [id number] THIS REPORT FOR: cc: Herman Kelly MD,Louie Crowley MD, MD ~ DATE OF SERVICE: 07/17/2020 LOCAL AREA NETWORK ADMINISTRATOR: None. PREOPERATIVE DIAGNOSIS: Bilateral lower lid entropion. POSTOPERATIVE DIAGNOSIS: Bilateral lower lid entropion. OPERATION PERFORMED: Bilateral lower lid entropion repair. ANESTHESIA: Local with IV sedation. COMPLICATIONS: None. INDICATIONS FOR PROCEDURE: This patient has bilateral lower lid entropion with chronic irritation and discharge. The current procedures are being undertaken in order to improve the patient's level of comfort and visual function. Informed consent was obtained to include but not limited to the loss of vision, bleeding, infection, scarring, failure to improve the problem and need for further surgery. DESCRIPTION OF OPERATION: The patient was taken to the operating room, where 2% Xylocaine with epinephrine mixed with equal parts of 0.75% Marcaine with Wydase was administered transcutaneously and transconjunctivally to each lower lid and lateral canthal area. The patient was then prepped and draped in the usual sterile fashion. A Gustavo clamp was used to clamp the left lateral canthus, following which a sharp canthotomy and cantholysis were performed. Hemostasis was achieved with a monopolar cautery, as it was throughout the case. A tarsal strip was prepared laterally, removing the lash bearing portion of the redundant lid margin and the redundant tarsal plate. A transconjunctival dissection was then undertaken just inferior to the lower border of the tarsal plate. The lower lid retractors were disinserted from the inferior border of the tarsal plate. The lower lid retractors were then advanced and reattached to the anterior surface of the tarsal plate with mattress 5-0 chromic sutures passed transconjunctivally and secured in the infraciliary margin. The tarsal strip was then secured laterally with 2 interrupted 5-0 Prolene sutures. The subcutaneous structures and the skin were then closed with multiple interrupted 6-0 plain gut sutures so the lateral canthal angle was sharply reformed. The [address] [address] OPERATIVE REPORT Name: LOUIE BOUDREAUX [id number] Admission: 07/17/20 Attend Phys: Louie Villaseñor MD Discharge: 07/17/20 Date of : 54 Report #: [id number] wounds were then cleaned and dressed with ophthalmic antibiotic ointment. The patient was then transported to the recovery area, having tolerated the procedure well with no anesthetic or operative complications being noted. <ELECTRONICALLY SIGNED> By: Louie Villaseñor MD 07/21/20 0619 Louie Villaseñor MD /kingsley
== END 2020-07-17 10:15 | disposition home or self-care (01) ==
LOC: OR 07:16 → TBA 07:17 → OR 10:05
PROVIDERS: ATTEND Ophthalmology
DX: H02.002 Unspecified entropion of right lower eyelid (principal); H02.005 Unspecified entropion of left lower eyelid; I12.9 Hypertensive chronic kidney disease with stage 1 through stage 4 chronic kidney disease, or unspecified chronic kidney disease; E11.22 Type 2 diabetes mellitus with diabetic chronic kidney disease; N18.30 Chronic kidney disease, stage 3 unspecified; I25.5 Ischemic cardiomyopathy; E78.00 Pure hypercholesterolemia, unspecified; K21.9 Gastro-esophageal reflux disease without esophagitis; M10.9 Gout, unspecified; Z98.890 Other specified postprocedural states; Z79.899 Other long term (current) drug therapy; Z85.828 Personal history of other malignant neoplasm of skin; Z95.1 Presence of aortocoronary bypass graft; Z94.1 Heart transplant status
CPT/HCPCS: 50010; 50101; 50386; 50398; 51636; 56527; 56531; 62110; 62850; 70005

== ENCOUNTER → 2020-08-11 | Outpatient (CLI) | payer OTHER, BC ==
[~2020-08-11] MED LIST changes: +DOXYCYCLINE 10100 M2 PO
== END ==
LOC: LAB 12:14
PROVIDERS: ATTEND Ophthalmology
DX: Z01.812 Encounter for preprocedural laboratory examination (principal); Z20.822 Contact with and (suspected) exposure to COVID-19

== ENCOUNTER 2020-08-14 06:09 | Day surgery (SDC) | payer OTHER, BC ==
[~2020-08-14] VITALS: Ht 177.8 cm; Wt 90.7 kg
--- NOTE | ~2020-08-14 | O ---
[place] [address] OPERATIVE REPORT Name: LOUIE BOUDREAUX LEONIDES Room #: 150-3 [facility]..#: [id number] Admission: 08/14/20 Attend Phys: Louie Villaseñor MD Discharge: Date of : 54 Report #: [id number] THIS REPORT FOR: cc: Herman Kelly MD, Michael L. MD White, William L. MD ~ DATE OF SERVICE: 08/14/2020 ENVIRONMENTAL HEALTH TECHNOLOGIST: None. PREOPERATIVE DIAGNOSIS: Bilateral upper lid ptosis with superior visual field defects both eyes. POSTOPERATIVE DIAGNOSIS: Bilateral upper lid ptosis with superior visual field defects both eyes. OPERATION PERFORMED: Bilateral upper lid functional ptosis repair. ENVIRONMENTAL HEALTH TECHNOLOGIST: None. ANESTHESIA: Local with IV sedation. COMPLICATIONS: None. INDICATIONS FOR PROCEDURE: This patient has bilateral upper lid ptosis with superior visual field loss both eyes. Visual field testing demonstrates dense superior visual defects. Retesting with the upper lid elevated shows an improvement in visual field loss of over 30% and in excess of 12 degrees. The current procedure is being undertaken in order to improve the patient's visual function. Informed consent was obtained to include but not limited to the risk of loss of vision, bleeding, infection, scarring, failure to improve the problem and need for further surgery, such as adjustment of lid height. DESCRIPTION OF PROCEDURE: The patient was taken to the operating room, where 2% Xylocaine with epinephrine mixed with equal parts of 0.75% Marcaine with Wydase was administered transcutaneously to each upper lid. The patient was then prepped and draped in the usual sterile fashion. An upper lid crease incision was then made bilaterally and the dissection was carried down until the orbital septum was identified. The orbital septum was then cleared and the preaponeurotic fat identified. The levator aponeurosis was then disinserted from the anterior surface of the tarsal plate and dissected free in the avascular Lee's muscle plane. The aponeurosis was then advanced [address] [address] OPERATIVE REPORT Name: LOUIE BOUDREAUX Room #: 150-3 [facility]..#: [id number] Admission: 08/14/20 Attend Phys: Louie Villaseñor MD Discharge: Date of : 54 Report #: [id number] and reattached to the anterior surface of the tarsal plate with interrupted mattress 6-0 Novafil sutures on each side, adjusting for height and contour. The redundant aponeurosis was then amputated. The incision was then closed with multiple interrupted 6-0 chromic sutures that were used to recreate an upper lid crease. The skin was closed with a running 6-0 plain gut suture. The wound was then cleaned and dressed with ophthalmic antibiotic ointment followed by a Telfa pad. The patient was transported to the recovery area, having tolerated the procedure well with no anesthesia or operative complications being noted. By: [id number] MD matt Traore
[2020-08-14 07:51] VITALS: BP 105/78
== END 2020-08-14 09:15 | disposition home or self-care (01) ==
LOC: OR 06:09 → TBA 06:09 → OR 09:15
PROVIDERS: ATTEND Ophthalmology
DX: H02.413 Mechanical ptosis of bilateral eyelids (principal); H53.462 Homonymous bilateral field defects, left side; H53.461 Homonymous bilateral field defects, right side; I12.9 Hypertensive chronic kidney disease with stage 1 through stage 4 chronic kidney disease, or unspecified chronic kidney disease; E11.22 Type 2 diabetes mellitus with diabetic chronic kidney disease; I48.92 Unspecified atrial flutter; E78.00 Pure hypercholesterolemia, unspecified; N18.30 Chronic kidney disease, stage 3 unspecified; K21.9 Gastro-esophageal reflux disease without esophagitis; I25.5 Ischemic cardiomyopathy; M10.9 Gout, unspecified; Z98.890 Other specified postprocedural states; Z79.899 Other long term (current) drug therapy; Z85.828 Personal history of other malignant neoplasm of skin; Z94.1 Heart transplant status; Z95.1 Presence of aortocoronary bypass graft
CPT/HCPCS: 50010; 50101; 50386; 50398; 51636; 56528; 56531; 62110; 62850; 70005